=== PATIENT | female | born 1965 | race Caucasian/White ===

== ENCOUNTER → 2020-06-30 12:39 | Outpatient (BNVA) | payer OTHER, SELFPAY | PROVIDERS: Visit Provider Nurse Practitioner Family | DX: Z20.828 Contact with and (suspected) exposure to other viral communicable diseases (principal); J06.9 Acute upper respiratory infection, unspecified; R43.0 Anosmia | CPT/HCPCS: 87635 ==

== ENCOUNTER → 2021-02-25 11:25 | Outpatient (BNVA) | payer OTHER, SELFPAY | PROVIDERS: PCP Nurse Practitioner Family; Visit Provider Surgery | DX: Z20.822 Contact with and (suspected) exposure to COVID-19 (principal) | CPT/HCPCS: 87635 ==

== ENCOUNTER 2021-03-03 09:08 | Day surgery (SDC) | payer OTHER, SELFPAY ==
[2021-02-24 13:51] VITALS: BMI 27.4
--- NOTE | 2021-03-03 09:42 | ANES.PREANE2 ---
Pre-Anesthetic Assessment Pre-Anesthetic Assessment: Height/Weight: Height 1.63 m Weight 72.575 kg Preop Diagnosis: hematochezia Proposed Procedure: Operation Date: 03/03/21 10:30 Proposed Procedures p Colonoscopy 46368 K92.1(Not Applicable) - Hudson Guerrero MD Familial anesthetic complications: none Was Beta Augustus taken within 24 hours: N/A Was Clonidine taken within 24 hours: N/A Last intake: > 8hrs Social: Social History: Tobacco and No alcohol Exam: Pre-Anes Outpt Exam: alert, oriented x 3, clear to auscultation bilaterally and regular rate & rhythm Airway: Cervical ROM: WNL MP: 2 Dentition: Full Metabolic: Metabolic: Thyroid Anesthetic Plan: ASA status: 2 Anesthesia: MAC Risk of > 500 ml blood loss (7ml/kg in children): No PFSH Anesthesia PFSH: Medical History (Updated 02/11/21 @ 08:52 by Hudson Guerrero MD) COVID-19 Hypothyroidism Surgical History (Updated 02/11/21 @ 08:49 by Hudson Guerrero MD) History of bunionectomy History of colonoscopy Family History (Updated 02/11/21 @ 08:44 by ADELIA Parrish) Denies family history of Anesthesia complication Bleeding disorder Social History Smoking and tobacco status: current every day smoker Data Anesthesia Cardiac Studies: No Data to Display
[2021-03-03 10:21] VITALS: BP 113/72; PULSE 61; RESP 18; TEMP 36.3; O2SAT 98
[2021-03-03] MEDS: sodium chloride 0.9% 1,000 ML 30 ML IV (10:42)
--- NOTE | 2021-03-03 10:50 | W.PM.OPSUD ---
Surgery/Procedure H&P Update DATE OF PROCEDURE: March 03, 2021 DATE H&P PERFORMED: 02/11/21 H&P UPDATE INFORMATION: I have reviewed H&P completed within last 30 days, I have examined patient prior to procedure and No changes to prior documentation PREOP DIAGNOSIS: screening colonoscopy PLANNED PROCEDURE: Operation Date: 03/03/21 10:30 Proposed Procedures p Colonoscopy 72740 K92.1(Not Applicable) - Hudson Guerrero MD
[2021-03-03 11:16] VITALS: BP 99/62; PULSE 60; RESP 16; TEMP 36.6; O2SAT 99
[2021-03-03 11:39] VITALS: BP 111/74; PULSE 58; RESP 18; O2SAT 95
--- NOTE | 2021-03-03 14:54 | ANE.PACU2 ---
Inpatient post-anesthesia follow up: Airway intact: Yes Vital signs: Temperature 97.9 F Pulse Rate 58 Respiratory Rate 18 Blood Pressure 111/74 Pulse Oximetry 95 Oxygen Delivery Me thod Room Air Oxygen Flow Rate 3 Fraction of Inspir ed Oxygen Hydration adequate: Yes Nausea and vomiting: No Pain level: 1 Mental status: Baseline
== END 2021-03-03 11:53 | disposition home or self-care (01) ==
PROVIDERS: PCP Nurse Practitioner Family; Visit Provider Surgery
PROC: 0DJD8ZZ Inspection of Lower Intestinal Tract, Via Natural or Artificial Opening Endoscopic (ICD-10-PCS; CPT 45378; principal; 2021-03-03 10:30)
DX: K92.1 Melena (principal); K63.5 Polyp of colon; K64.8 Other hemorrhoids; Z86.16 Personal history of COVID-19; E03.9 Hypothyroidism, unspecified; F17.210 Nicotine dependence, cigarettes, uncomplicated
CPT/HCPCS: 45380; 88305; 96360; J2704; J7030

== ENCOUNTER 2021-03-15 07:59 | Outpatient (CLI) | payer OTHER, SELFPAY ==
[2021-03-15] MEDS: iohexol 300 mg/mL 50 mL Btl PO (09:10)
--- NOTE | 2021-03-15 09:30 | CT_ITS ---
WS: [id number] CT ABDOMEN AND PELVIS WITH CONTRAST HISTORY: K92.1 - Melena TECHNIQUE: Imaging performed of the abdomen and pelvis with IV contrast. Single phase imaging of the abdomen. Coronal and sagittal reformats are submitted. All CT scans at [facility] use at [address] one of these dose optimization techniques: automated exposure control; mA and/or kV adjustment per patient size (includes targeted exams where dose is matched to clinical indication); or iterative re construction. IV CONTRAST: Omnipaque 300; 95 mL IV. Oral contrast: Yes. DLP: 1108.75 mGycm COMPARISON: None available. Lower thorax: Lung bases are clear. Heart is normal size. No hiatal hernia. Liver/biliary system: Normal size with no intrahepatic dilatation. Gallbladder: Normal. No gallstones or wall thickening. No pericholecystic fluid. Pancreas: Normal size pancreas and pancreatic duct. No adjacent inflammation. Spleen: Normal size spleen. No mass or infarct. Adrenal glands: Normal. Right kidney: Normal. Left kidney: Normal. Aorta: Mild atherosclerosis with no aneurysm. No aneurysm. Lymphadenopathy: None. Free fluid: None. GI tract: Appendix is not identified. Mild fecal retention throughout the colon. No GI tract obstruct ion or soft tissue mass identified. Abdominal wall: Unremarkable abdominal wall. No hernia. Pelvis: No free fluid or adenopathy within the pelvis. Bones: Sclerotic focus in the superior LEFT femoral neck measures 13 mm. Probably representing a bone island. CT/CT abdomen pelvis w con* [id number] IMPRESSION: 1. No GI tract obstruction or abnormality identified. 2. The appendix is not identified. 3. Mild atherosclerosis aorta. 4. No adenopathy or ascites.
[2021-03-15] MEDS: iohexol 300 mg/mL 100 mL Btl IV (09:36)
== END 2021-03-15 08:00 | disposition home or self-care (01) ==
PROVIDERS: PCP Nurse Practitioner Family; Visit Provider Surgery
DX: K92.1 Melena (principal); R10.31 Right lower quadrant pain; I70.0 Atherosclerosis of aorta
CPT/HCPCS: 74177; Q9967

== ENCOUNTER 2021-03-18 14:46 | Outpatient (CLI) | payer OTHER, SELFPAY ==
--- NOTE | 2021-03-18 15:00 | US_ITS ---
WS: [id number] ULTRASOUND PELVIS TECHNIQUE: Transabdominal and transvaginal. ULTRASOUND PELVIS TECHNIQUE: Transabdominal. CLINICAL INFORMATION: R10.31 - Right lower quadrant pain COMPARISON: None. FINDINGS: Uterus Orientation: Anteverted. Size: 4.4 cm x 2.5 cm x 1.8 cm. Masses: None. Cervix: Heterogeneous slightly thickened cervix. This can be further evaluated with direct visualizat ion/hysteroscopy. Endometrium: Normal. Endometrium thickness: 0.1 cm. Adnexa: Neither ovary is visualized Free fluid: None. Other findings: None. US/US pelvic with transvaginal IMPRESSION: 1. Normal uterus and endometrium. 2. Neither ovary is visualized. 3. Heterogeneous slightly thickened cervix. This can be further evaluated wit h direct visualization/hysteroscopy. 4. No free fluid in the cul-de-sac.
== END 2021-03-18 14:47 | disposition home or self-care (01) ==
PROVIDERS: PCP Nurse Practitioner Family; Visit Provider Surgery
DX: R10.31 Right lower quadrant pain (principal)
CPT/HCPCS: 76830; 76856

== ENCOUNTER → 2021-04-11 15:57 | Outpatient (BNVA) | payer OTHER, SELFPAY | PROVIDERS: PCP Nurse Practitioner Family; Visit Provider Obstetrics & Gynecology | DX: R10.2 Pelvic and perineal pain (principal); Z12.4 Encounter for screening for malignant neoplasm of cervix | CPT/HCPCS: 87624 ==

== ENCOUNTER → 2021-04-18 08:10 | Outpatient (BNVA) | payer OTHER, SELFPAY | PROVIDERS: PCP Nurse Practitioner Family; Visit Provider Obstetrics & Gynecology | DX: R10.2 Pelvic and perineal pain (principal); Z20.822 Contact with and (suspected) exposure to COVID-19 | CPT/HCPCS: 87635 ==

== ENCOUNTER 2021-04-20 11:17 | Day surgery (SDC) | payer OTHER, SELFPAY ==
[2021-04-19 15:30] VITALS: BMI 27.4
[2021-04-20] VITALS (7 sets, daily range): BP systolic 99–135; BP diastolic 54–96; PULSE 57–68; RESP 16–18; TEMP 36–36.3; O2SAT 95–100
--- NOTE | 2021-04-20 11:45 | W.PM.OPSUD ---
Surgery/Procedure H&P Update DATE OF PROCEDURE: April 20, 2021 DATE H&P PERFORMED: 04/11/21 H&P UPDATE INFORMATION: I have reviewed H&P completed within last 30 days, I have examined patient prior to procedure and No changes to prior documentation PREOP DIAGNOSIS: Pelvic pain PLANNED PROCEDURE: Operation Date: 04/20/21 12:45 Proposed Procedures p Laparoscopy Diagnostic 48862 R10.2(Not Applicable) - Edgardo Paz MD
[2021-04-20] MEDS: scopolamine 1.5 Patch 1 PATCH TRANSDERMA (12:03)
[2021-04-20] MEDS: sodium chloride 0.9% 500 ML IV (12:03)
[2021-04-20] MEDS: sodium chloride 0.9% 1,000 ML 30 ML IV (12:04)
[2021-04-20 12:07] LABS: Add Urine Microscopic? NO; Charge for UA Resulting for Rev
[2021-04-20 12:11] LABS: Basophils # 0.1 10^3/uL (0.0-0.1); Basophils % 0.6 %; Eosinophils # 0.1 10^3/uL (0.0-0.8); Eosinophils % 0.9 %; Hematocrit 41.6 % (37.0-47.0); Hemoglobin 13.2 g/dL (11.5-15.3); Lymphocytes # 3.4 10^3/uL (0.8-4.8); Lymphocytes % 39.9 %; Mean Corpuscular HGB Conc 31.7 g/dL (30.0-36.0); Mean Corpuscular Hemoglobin 29.5 pg (28.0-34.0); Mean Corpuscular Volume 92.9 fl (81-99); Mean Platelet Volume 10.8 fL (7.4-10.4); Monocytes # 0.5 10^3/uL (0.2-0.9); Monocytes % 5.2 %; Neutrophils # 4.54 10^3/uL (1.8-7.7); Neutrophils % 52.9 %; Nucleated Red Blood Cells % 0 %; Platelet Count 181 10^3/cmm (130-400); Red Blood Count 4.48 10^6/uL (4.1-5.3); White Blood Count 8.6 10^3/uL (4.0-10.0)
--- NOTE | 2021-04-20 12:13 | ANES.PREANE2 ---
Pre-Anesthetic Assessment Pre-Anesthetic Assessment: Height/Weight: Height 1.63 m Weight 72.575 kg Temp Pulse Resp BP Pulse Ox 96.8 F L 57 L 18 99/69 98 04/20/21 11:28 04/20/21 11:28 04/20/21 11:28 04/20/21 11:28 04/20/21 11:28 Preop Diagnosis: Pelvic pain Proposed Procedure: Operation Date: 04/20/21 12:45 Proposed Procedures p Laparoscopy Diagnostic 68780 R10.2(Not Applicable) - Edgardo Paz MD Was Beta Augustus taken within 24 hours: N/A Was Clonidine taken within 24 hours: N/A Last intake: Intake Last Liquid Date 04/19/21 Last Liquid Time 20:00 Last Solid Date 04/19/21 Last Solid Time 20:00 Social: Social History: No alcohol and No tobacco Exam: Pre-Anes Outpt Exam: alert, oriented x 3 and regular rate & rhythm Airway: Submandibular: WNL Cervical ROM: WNL MP: 2 Dentition: Full History/ROS: No significant history except as noted Metabolic: Metabolic: Thyroid Anesthetic Plan: ASA status: 2 Anesthesia: General Risk of > 500 ml blood loss (7ml/kg in children): No Meds/Allergies Current Medications: Current Medications Generic Name Dose Route Start Last Admin Trade Name Jorge Albertoq PRN Reason Stop Dose Admin Sodium Chloride 500 mls @ 500 mls /hr 04/20/21 11:25 04/20/21 12:03 Sodium Chloride 0.9% IV 04/20/21 12:24 500 mls/hr ONCE ONE Administration Sodium Chloride 1,000 mls @ 30 ml s/hr 04/20/21 11:30 04/20/21 12:04 Sodium Chloride 0.9% IV 04/21/21 11:29 30 mls/hr .Q24H YUSEF Administration PFSH Anesthesia PFSH: Medical History (Updated 04/11/21 @ 15:42 by Edgardo Paz MD) COVID-19 Hypothyroidism Surgical History (Updated 04/11/21 @ 15:10 by Gila Esparza LPN) History of bunionectomy History of colonoscopy (03/03/21) sigmoid polyp Family History Denies family history of Anesthesia complication Bleeding disorder Data Anesthesia CBC & Chem 7: 04/20/21 11:55 04/20/21 11:55 Other Labs: Laboratory Results - last 48 hr 04/20/21 11:55 WBC 8.6 RBC 4.48 Hgb 13.2 Hct 41.6 MCV 92.9 MCH 29.5 MCHC 31.7 RDW 14.0 Plt Count 181 MPV 10.8 H Neut % (Auto) 52.9 Lymph % (Auto) 39.9 [place] % (Auto) 5.2 Eos % (Auto) 0.9 Baso % (Auto) 0.6 Neut # (Auto) 4.54 Lymph # (Auto) 3.4 [place] # (Auto) 0.5 Eos # (Auto) 0.1 Baso # (Auto) 0.1 Nucleated RBC % (auto) 0 Nucleated RBCs # 0.0 Cardiac Studies: No Data to Display
[2021-04-20 12:47] LABS: Bilirubin Urine Neg (Negative); Blood Urine Neg (Negative); Glucose Urine UA Norm (Normal); Ketones Urine Negative (Negative); Leukocyte Esterase Urine Negative (Negative); Nitrate Urine Negative (Negative); OR HCG Qualitative Urine Negative (Negative); Protein Urine Neg (Negative); Urine Appearance Clear (CLEAR); Urine Color Yellow (Yellow); Urobilinogen Urine Norm (Negative); pH Urine 5 (5-7)
[2021-04-20 13:02] LABS: Albumin Level 4.4 g/dL (3.5-5.2); Alkaline Phosphatase 64 IU/L (35-105); Blood Urea Nitrogen 13 mg/dL (6-20); Calcium 9.2 mg/dL (8.5-10.5); Carbon Dioxide 28 mmol/L (22-29); Chloride 103 mmol/L (98-107); Globulin 3.1 g/dL (1.3-4.6); Glomerular Filtration Rate 85.9 mL/min (90-130); Glucose 74 mg/dL (65-115); Osmolality Calculated 283 mOsm/kg (285-295); Sodium 137 mmol/L (136-145); Total Bilirubin 0.2 mg/dL (0.15-1.2); Total Protein 7.5 g/dL (6.6-8.7)
[2021-04-20 13:04] LABS: Alanine Aminotransferase 18 U/L (0-33); Anion Gap 10.3 (5-19); Aspartate Amino Transferase 17 U/L (0-32); Potassium 4.3 mmol/L (3.5-5.1)
--- NOTE | 2021-04-20 13:36 | PM.OP ---
Operative Report Date of procedure: April 20, 2021 Pre-op Diagnosis: Pelvic pain Post-op diagnosis: same Post-op Findings: Normal pelvic anatomy Procedure Done: Diagnostic laparoscopy Pathology: none sent Surgeon: Edgardo Paz MD Anesthesia: General Estimated blood loss (mL): 5 IV fluids (mL): 1,000 Urine output (mL): 100 Complications: none Findings: Normal pelvic anatomy with streak ovaries, no [employer] pathology. Condition: stable Disposition: PACU Procedure: DESCRIPTION OF PROCEDURE: After informed consent, the patient was taken to the operating room where general anesthesia was administered. The patient was examined under anesthesia and found to have a normal uterus with normal adnexa. She was placed in the dorsal lithotomy position and prepped and draped in sterile fashion. Pre-Procedure Time-Out verifying the correct patient identity, correct procedure verified with consent, correct site and side, correct patient position, availability of correct implants and any special equipment or requirements was performed and acknowledge by the OR team. A weighted speculum was placed in the vagina, and the anterior lip of cervix was grasped with the single toothed tenaculum. A uterine manipulator was advanced into the endocervical. Tenaculum was removed after uterine manipulator was secured. The speculum was removed from the vagina. An intraumbilical incision was made with a scalpel. While tenting up on the abdomen, a Verres needle with sleeve was admitted into the intra-abdominal cavity. A saline drop test was performed and noted to be within normal limits. Pneumoperitoneum was attained with 4 liters of carbon dioxide. The Verres needle was removed. A 5 mm trocar and sleeve were admitted into the abdomen and laparoscopic confirmation of location was achieved, A second incision was made 3 cm above the symphysis pubis, and a 5 mm trocar and sleeve were admitted into the abdomen under direct, laparoscopic visualization without complication. A survey revealed normal abdominal anatomy. Pelvic anatomy survey shows normal uterus, left and right adnexa with streak ovaries. A 5 mm blunt probe was advanced through the second trocar sleeve, and light manipulation of ovaries and uterus to assess the posterior aspects was performed. Carbon dioxide was allowed to escape from the abdomen. The instruments were removed, and skin cover with a bandage. The instruments were removed from the vagina, and excellent hemostasis was noted. The patient tolerated the procedure well, and sponge, lap and needle count were correct times two. The patient taken to the recovery room in good condition.
--- NOTE | 2021-04-20 15:48 | ANE.PACU2 ---
Inpatient post-anesthesia follow up: Airway intact: Yes Vital signs: Temperature 97 F Pulse Rate 61 Respiratory Rate 16 Blood Pressure 120/96 Pulse Oximetry 97 Oxygen Delivery Me thod Room Air Oxygen Flow Rate Fraction of Inspir ed Oxygen Hydration adequate: Yes Nausea and vomiting: No Pain level: 2 Mental status: Baseline
== END 2021-04-20 14:48 | disposition home or self-care (01) ==
PROVIDERS: PCP Nurse Practitioner Family; Visit Provider Obstetrics & Gynecology
PROC: (CPT 49320; principal; 2021-04-20 12:45)
DX: R10.2 Pelvic and perineal pain (principal); Z86.16 Personal history of COVID-19; E03.9 Hypothyroidism, unspecified
CPT/HCPCS: 49320; 80053; 81003; 84703; 85025; 86850; 86900; 96365; J0690; J1170; J1885; J2405; J2704; J2710; J3010; J3490; J7030; J7040